=== PATIENT | female | born 1960 | race Caucasian/White ===

== ENCOUNTER 2016-09-05 16:04 | Inpatient (IN) ==
[2016-09-05 16:43] LABS: Bilirubin,Urine Small (Negative); Blood,Urine Negative (Negative); Clarity,Urine Cloudy (Clear); Color,Urine Yellow (Yellow); Glucose,Urine (UA) Normal (Normal); Ketones,Urine Trace mg/dL (Negative); Leukocyte Esterase,Urine Small (Negative); Nitrite,Urine Negative (Negative); Protein,Urine 30 mg/dL (Neg-Trace); Specific Gravity,Urine > 1.030 (1.010-1.025); Urobilinogen,Urine Normal (Normal)
[2016-09-05 16:45] LABS: Bacteria,Urine None Seen per hpf (None-Few); Hyaline Casts,Urine Few per lpf (None-Few); Squamous Epithelial Cell,Urine Many per lpf (None-Few)
[2016-09-05 16:46] LABS: Basophils % 0.3 %; Eosinophils # 0.2 K/mcL (0.0-0.6); Eosinophils % 2.8 %; Hematocrit 42.2 % (35.3-44.9); Hemoglobin 13.6 g/dL (11.5-15.4); Immature Granulocytes % 1.1 % (0-4); Lymphocytes # 2.7 K/mcL (0.6-4.6); Lymphocytes % 36.2 %; Mean Corpuscular HGB Conc 32.2 g/dL (31.6-35.5); Mean Corpuscular Hemoglobin 28.7 pg (28.0-33.3); Monocytes % 13.3 %; Neutrophils # 3.5 K/mcL (1.6-8.9); Platelet Count 332 K/mcL (140-400); Red Blood Count 4.74 M/mcL (3.82-4.97); Red Cell Distribution Width 13.3 % (11.5-14.5); Segmented Neutrophils % 46.3 %
[2016-09-05 16:55] LABS: Amphetamine Screen,Urine Negative ng/mL (Cutoff=1000); Barbiturate Screen,Urine Negative ng/mL (Cutoff=200); Benzodiazepines Screen,Urine Negative ng/mL (Cutoff=200); Cannabinoid Screen,Urine Negative ng/mL (Cutoff = 50); Cocaine Screen,Urine Negative ng/mL (Cutoff= 300); Opiate Screen,Urine Negative ng/mL (Cutoff=300); Phencyclidine Screen,Urine Negative ng/mL (Cutoff=25)
[2016-09-05 16:57] LABS: Calcium Oxalate Crystals,Urine Present
[2016-09-05 16:58] LABS: Mucus,Urine Moderate (Few)
[2016-09-05 17:01] LABS: Acetaminophen < 1.0 mcg/mL (10-30); Alanine Aminotransferase 36 Units/L (0-55); Albumin 3.8 g/dL (3.5-5.0); Albumin/Globulin Ratio 1.2 (1.1-2.2); Alkaline Phosphatase 55 Units/L (38-126); Aspartate Amino Transferase 37 Units/L (5-34); BUN/Creatinine Ratio 24 (6-26); Bilirubin,Total 0.4 mg/dL (0.2-1.2); Blood Urea Nitrogen 19 mg/dL (7-20); Calcium 9.5 mg/dL (8.6-10.8); Carbon Dioxide 25 mEq/L (19-29); Chloride 107 mEq/L (98-109); Ethanol < 10 mg/dL (0-10); Globulin 3.3 g/dL (2.4-3.5); Glucose 100 mg/dL (70-99); Osmolality,Calculated 296 (280-300); Potassium 3.3 mEq/L (3.5-4.5); Salicylate < 5.0 mg/dL (15-30); Sodium 142 mEq/L (136-145); Total Protein 7.1 g/dL (6.0-8.3); eGFR For African Americans > 60 (> 60); eGFR For Non-African Americans > 60 (> 60)
--- NOTE | 2016-09-05 17:07 | Emergency Department Note ---
Disposition Clinical Impression: Manic behavior Disposition: Admitted As Inpatient Condition: Good Referrals: NO,PCP [Primary Care Provider] - Forms: ED Satisfaction Letter Psych HPI - General Chief Complaint: ED Medical Clearance Stated Complaint: medical clearance Time Seen by Provider: 09/05/16 16:25 Source: patient Nursing Notes Reviewed: Yes Vital Signs Reviewed: Yes - History of Present Illness HPI Narrative: Patient has been sent to this emergency department for medical clearance. Patient as having a manic episode. Patient stopped taking her medications a few weeks ago and has not been a being or taking good care of herself. Patient has had problems outside of the home services. Patient has been admitted to the [facility] services but she will need to be cleared medically before being further evaluated. - Related Data Home Medications Medication Instructions Recorded Confirmed Ranitidine HCl [Zantac] 300 mg PO HS 02/11/16 07/28/16 Aspirin 325 mg PO DAILY 07/28/16 07/28/16 Sertraline [Zoloft] 25 mg PO DAILY 07/28/16 07/28/16 Simethicone [Gas-X] 80 mg PO TID PRN 07/28/16 07/28/16 Vitamin B Complex 1 each PO DAILY 07/28/16 07/28/16 Previous Rx's Medication Instructions Recorded Azithromycin [Azithromycin 6-Tab 250 mg PO DAILY #6 tab 07/28/16 Pack] Benzonatate [Tessalon] 200 mg PO TID PRN #30 capsule 07/28/16 Allergies Allergy/AdvReac Type Severity Reaction Status Date / Time Penicillins Allergy Rash Verified 06/18/16 15:55 sulfamethoxazole Allergy See Verified 06/18/16 15:55 [From Bactrim] Comments trimethoprim [From Bactrim] Allergy See Verified 06/18/16 15:55 Comments All systems ED: reviewed and negative except as stated. Past Medical History - Past Medical History Source: patient Medical history: Reports: hyperlipidemia, hypertension, other Surgical history: Reports: other Psychiatric history: Reports: previous psychiatric hospitalization [employer] history: Reports: non-contributory, bilateral tubal ligation - Social History Smoking Status: Never smoker Smokeless Tobacco Status: No Alcohol use: Reports: none Drug use: Reports: none Physical Exam - General Limitations: no limitations General appearance: alert - Head Head exam: atraumatic, normocephalic, normal inspection - Eye Eye exam: Present: normal appearance, PERRL, EOMI - ENT ENT exam: normal exam, normal oropharynx, mucous membranes moist - Neck Neck exam: Present: normal inspection, full ROM, trachea midline - Chest Chest inspection: Present: normal inspection, symmetric chest wall rise - Respiratory Respiratory exam: Present: normal lung sounds bilaterally - Cardiovascular Cardiovascular exam: Present: regular rate, normal rhythm, normal heart sounds - Abdominal Exam Abdominal exam: Present: soft, Non-Tender. Absent: tenderness, distention, guarding, rebound, rigidity - Extremities Exam Extremities exam: Present: normal inspection, full ROM. Absent: tenderness, pedal edema - Back Exam Back exam: Present: normal inspection, full ROM. Absent: tenderness - Neurological Exam Neurological exam: Present: alert, oriented X3 - Psychiatric Psychiatric exam: Present: normal affect, normal mood - Skin Skin exam: Present: warm, dry, intact, normal color Course Vital Signs Temperature 97.8 F 09/05/16 16:09 Pulse Rate 95 09/05/16 16:09 Respiratory Rate 18 09/05/16 16:09 Blood Pressure 148/82 09/05/16 16:09 O2 Sat by Pulse Oximetry 96 09/05/16 16:09 Temperature 97.8 F 09/05/16 16:09 Pulse Rate 95 09/05/16 16:09 Respiratory Rate 18 09/05/16 16:09 Blood Pressure 148/82 09/05/16 16:09 O2 Sat by Pulse Oximetry 96 09/05/16 16:09 Psych - Differential Diagnosis Likely: acute psychosis, suicidal ideation, bipolar disorder, depression, drug- induced psychotic disorder, acute anxiety state, panic disorder - Lab Data Result diagrams: 09/05/16 16:34 09/05/16 16:34 Lab Results 09/05/16 09/05/16 09/05/16 Range/Units 16:32 16:32 16:34 WBC 7.5 (4.3-11.1) K/mcL RBC 4.74 (3.82-4.97) M/mcL Hgb 13.6 (11.5-15.4) g/dL Hct 42.2 (35.3-44.9) % MCV 89.0 (83.0-100.0) fL MCH 28.7 (28.0-33.3) pg MCHC 32.2 (31.6-35.5) g/dL RDW 13.3 (11.5-14.5) % Plt Count 332 (140-400) K/mcL MPV 9.0 L (9.4-12.4) fL Immature Gran % 1.1 (0-4) % Seg Neutrophils % 46.3 % Lymphocytes % 36.2 % Monocytes % 13.3 % Eosinophils % 2.8 % Basophils % 0.3 % Neutrophils # 3.5 (1.6-8.9) K/mcL Lymphocytes # 2.7 (0.6-4.6) K/mcL Monocytes # 1.0 (0.0-1.3) K/mcL Eosinophils # 0.2 (0.0-0.6) K/mcL Basophils # 0.0 (0.0-0.2) K/mcL Sodium (136-145) mEq/L Potassium (3.5-4.5) mEq/L Chloride (98-109) mEq/L Carbon Dioxide (19-29) mEq/L BUN (7-20) mg/dL Creatinine (0.57-1.11) mg/dL Est GFR ( Amer) (> 60) Est GFR (Non-Af Amer) (> 60) BUN/Creatinine Ratio (6-26) Glucose (70-99) mg/dL Calculated Osmolality (280-300) Calcium (8.6-10.8) mg/dL Total Bilirubin (0.2-1.2) mg/dL AST (5-34) Units/L ALT (0-55) Units/L Alkaline Phosphatase (38-126) Units/L Serum Total Protein (6.0-8.3) g/dL Albumin (3.5-5.0) g/dL Globulin (2.4-3.5) g/dL Albumin/Globulin Ratio (1.1-2.2) Urine Color Yellow (Yellow) Urine Clarity Cloudy A (Clear) Urine pH 6.0 (5.0-8.0) pH Units Ur Specific [place] > 1.030 H (1.010-1.025) Urine Protein 30 H (Neg-Trace) mg/dL Urine Glucose (UA) Normal (Normal) mg/dL Urine Ketones Trace H (Negative) mg/dL Urine Blood Negative (Negative) Urine Nitrite Negative (Negative) Urine Bilirubin Small H (Negative) Urine Urobilinogen Normal (Normal) mg/dL Ur Leukocyte Esterase Small H (Negative) Urine Microscopic RBC 3-5 H (0-3) per hpf Urine Microscopic WBC 5-15 H (0-3) per hpf Ur Squamous Epith Cells Many H (None-Few) per lpf Calcium Oxalate Crystal Present Urine Bacteria None Seen (None-Few) per hpf Hyaline Casts Few (None-Few) per lpf Urine Mucus Moderate H (Few) Salicylates (15-30) mg/dL Urine Opiates Screen Negative (Wqsqft=770) ng/mL Acetaminophen (10-30) mcg/mL Ur Barbiturates Screen Negative (Zqfkvp=004) ng/mL Ur Phencyclidine Scrn Negative (Cutoff=25) ng/mL Ur Amphetamines Screen Negative (Lylsel=6703) ng/mL U Benzodiazepines Scrn Negative (Clldjd=646) ng/mL Urine Cocaine Screen Negative (Cutoff= 300) ng/mL U Marijuana (THC) Screen Negative (Cutoff = 50) ng/mL Ethyl Alcohol (0-10) mg/dL 09/05/16 Range/Units 16:34 WBC (4.3-11.1) K/mcL RBC (3.82-4.97) M/mcL Hgb (11.5-15.4) g/dL Hct (35.3-44.9) % MCV (83.0-100.0) fL MCH (28.0-33.3) pg MCHC (31.6-35.5) g/dL RDW (11.5-14.5) % Plt Count (140-400) K/mcL MPV (9.4-12.4) fL Immature Gran % (0-4) % Seg Neutrophils % % Lymphocytes % % Monocytes % % Eosinophils % % Basophils % % Neutrophils # (1.6-8.9) K/mcL Lymphocytes # (0.6-4.6) K/mcL Monocytes # (0.0-1.3) K/mcL Eosinophils # (0.0-0.6) K/mcL Basophils # (0.0-0.2) K/mcL Sodium 142 (136-145) mEq/L Potassium 3.3 L (3.5-4.5) mEq/L Chloride 107 (98-109) mEq/L Carbon Dioxide 25 (19-29) mEq/L BUN 19 (7-20) mg/dL Creatinine 0.78 (0.57-1.11) mg/dL Est GFR ( Amer) > 60 (> 60) Est GFR (Non-Af Amer) > 60 (> 60) BUN/Creatinine Ratio 24 (6-26) Glucose 100 H (70-99) mg/dL Calculated Osmolality 296 (280-300) Calcium 9.5 (8.6-10.8) mg/dL Total Bilirubin 0.4 (0.2-1.2) mg/dL AST 37 H (5-34) Units/L ALT 36 (0-55) Units/L Alkaline Phosphatase 55 (38-126) Units/L Serum Total Protein 7.1 (6.0-8.3) g/dL Albumin 3.8 (3.5-5.0) g/dL Globulin 3.3 (2.4-3.5) g/dL Albumin/Globulin Ratio 1.2 (1.1-2.2) Urine Color (Yellow) Urine Clarity (Clear) Urine pH (5.0-8.0) pH Units Ur Specific [place] (1.010-1.025) Urine Protein (Neg-Trace) mg/dL Urine Glucose (UA) (Normal) mg/dL Urine Ketones (Negative) mg/dL Urine Blood (Negative) Urine Nitrite (Negative) Urine Bilirubin (Negative) Urine Urobilinogen (Normal) mg/dL Ur Leukocyte Esterase (Negative) Urine Microscopic RBC (0-3) per hpf Urine Microscopic WBC (0-3) per hpf Ur Squamous Epith Cells (None-Few) per lpf Calcium Oxalate Crystal Urine Bacteria (None-Few) per hpf Hyaline Casts (None-Few) per lpf Urine Mucus (Few) Salicylates < 5.0 L (15-30) mg/dL Urine Opiates Screen (Jwscgo=591) ng/mL Acetaminophen < 1.0 L (10-30) mcg/mL Ur Barbiturates Screen (Jihyof=812) ng/mL Ur Phencyclidine Scrn (Cutoff=25) ng/mL Ur Amphetamines Screen (Knypud=0489) ng/mL U Benzodiazepines Scrn (Yfgwyi=178) ng/mL Urine Cocaine Screen (Cutoff= 300) ng/mL U Marijuana (THC) Screen (Cutoff = 50) ng/mL Ethyl Alcohol < 10 (0-10) mg/dL Psychiatric Medical Clearance - Medical Clearance Checklist Medical History: No Social History Section defined Current Vitals: Last Vital Signs Temp 97.8 F 09/05/16 16:09 Pulse 95 09/05/16 16:09 Resp 18 09/05/16 16:09 BP 148/82 09/05/16 16:09 Pulse Ox 96 09/05/16 16:09 Psychiatric Lab Panel: Drug Levels and Toxicity 09/05/16 09/05/16 16:32 16:34 Urine Opiates Screen Negative Acetaminophen < 1.0 L Ur Barbiturates Screen Negative Ur Phencyclidine Scrn Negative Ur Amphetamines Screen Negative U Benzodiazepines Scrn Negative Urine Cocaine Screen Negative U Marijuana (THC) Screen Negative Ethyl Alcohol < 10 Abnormal Labs: Abnormal lab results MPV 9.0 fL (9.4-12.4) L 09/05/16 16:34 Potassium 3.3 mEq/L (3.5-4.5) L 09/05/16 16:34 Glucose 100 mg/dL (70-99) H 09/05/16 16:34 AST 37 Units/L (5-34) H 09/05/16 16:34 Urine Clarity Cloudy (Clear) A 09/05/16 16:32 Ur Specific [place] > 1.030 (1.010-1.025) H 09/05/16 16:32 Urine Protein 30 mg/dL (Neg-Trace) H 09/05/16 16:32 Urine Ketones Trace mg/dL (Negative) H 09/05/16 16:32 Urine Bilirubin Small (Negative) H 09/05/16 16:32 Ur Leukocyte Esterase Small (Negative) H 09/05/16 16:32 Urine Microscopic RBC 3-5 per hpf (0-3) H 09/05/16 16:32 Urine Microscopic WBC 5-15 per hpf (0-3) H 09/05/16 16:32 Ur Squamous Epith Cells Many per lpf (None-Few) H 09/05/16 16:32 Urine Mucus Moderate (Few) H 09/05/16 16:32 Salicylates < 5.0 mg/dL (15-30) L 09/05/16 16:34 Acetaminophen < 1.0 mcg/mL (10-30) L 09/05/16 16:34 Statement of Medical Clearance: I have evaluated the patient, reviewed diagnostic information, and certify that the patient's medical condition is sufficiently stable that transfer to the psychiatric unit does not pose a significant risk of deterioration.
[2016-09-05] MEDS ORDERED: Ibuprofen 400 MG TABLET PO PRN (18:25)
[2016-09-05] MEDS ORDERED: Haloperidol Lactate 5 MG/ML VIAL IM PRN (18:25)
[2016-09-05] MEDS ORDERED: MOM Conc 10 ML UD.LIQ PO PRN (18:25)
[2016-09-05] MEDS ORDERED: *HR* LORazepam 2 MG/ML VIAL IM PRN (18:25)
[2016-09-05] MEDS ORDERED: *HR* LORazepam 1 MG TABLET PO PRN (18:25)
[2016-09-05] MEDS ORDERED: Mag Hydrox/Al Hydrox/Simeth 30 ML UDC PO PRN (18:25)
[2016-09-05] MEDS ORDERED: Famotidine 20 MG TABLET PO PRN (18:36)
[2016-09-05] MEDS: traZODone 50 MG TABLET PO SCH (20:17)
[2016-09-05] MEDS: traZODone 50 MG TABLET PO PRN (23:57)
--- NOTE | 2016-09-06 09:55 | Psychiatry History & Physical ---
Date of Encounter: 09/06/16 Time of Encounter: 09:00 History of Present Illness Patient Stated Chief Complaint: Manic episode Medicare Admission Attestation: For traditional Medicare patients the provided hospital inpatient services are reasonable and necessary and in the case of services not specified as inpatient -only under 42 CFR 419.22 (n), that they are appropriately provided as inpatient services in accordance 42 CFR 412.3. For Critical Access Hospital the patient may reasonably be expected to be discharged or transferred to a hospital within 96 hours after admission to the Critical Access Hospital. Admitted From: Emergency Dept History of Present Illness: Ms. Rasheed is a 56 year old female admitted from the emergency room for evaluation of a manic episode with psychosis. Patient was reported to be wandering in the streets and was brought in by the police, she was noncompliant with her medication. Patient has a history of depression and bipolar and has been hospitalized in the past and did not comply with medication or follow-up. She reports poor sleep, mood swings but denies any hallucinations or suicidal ideation. Past Med Surg Social Fam HX - Past Medical History Medical history: hyperlipidemia, hypertension, other - Past Psychiatric History Psychiatric history: Reports: bipolar, depression, schizophrenia, previous psychiatric hospitalization Past psychiatric history details: Most recent hospitalization February 2016 discharged on Zoloft, BuSpar and trazodone. Family psychiatric history: Unknown Family History of Suicide: Unknown - Past Surgical History Surgical History: non-contributory, other - Social History Smoking Status: Never smoker Smokeless Tobacco Status: No Alcohol use: none Drug use: none - Family History Mother Family Member Ethnicity: Non- Living Status: Hx Family Cardiac Disorders: Yes Father Family Member Ethnicity: Non- Living Status: Hx Family Cardiac Disorders: Yes (stents in 2002) Hx Family Endocrine Disorder: Yes ("Diabetic, overweight") Medications & Allergies Ranitidine HCl [Zantac] 300 mg PO BID PRN 02/11/16 [History] Sertraline [Zoloft] 50 mg PO DAILY 07/28/16 [History] Aspirin 325 mg PO DAILY 09/05/16 [History] Cyanocobalamin (B-12) [Vitamin B12] 1,000 mg PO DAILY 09/05/16 [History] Gabapentin [Neurontin] 300 mg PO TID 09/05/16 [History] Insulin ASPART [NovoLOG] 09/05/16 [History] Insulin Glargine [Lantus] 09/05/16 [History] Levothyroxine Sodium 75 mcg PO 0630 09/05/16 [History] [place] Carbonate 300 mg PO DAILY 09/05/16 [History] [place] Carbonate ER [Eskalith] 450 mg PO HS 09/05/16 [History] Losartan Potassium [Cozaar] 50 mg PO DAILY 09/05/16 [History] Metformin [Glucophage] 500 mg PO BIDWM 09/05/16 [History] Naproxen [Naprosyn] 250 mg PO BID PRN 09/05/16 [History] Omeprazole [PriLOSEC] 20 mg PO DAILY 09/05/16 [History] Potassium Chloride [K-Tab ER] 20 meq PO BID 09/05/16 [History] SUMAtriptan [Imitrex] 50 mg PO Q2H PRN 09/05/16 [History] Simvastatin [Zocor] 40 mg PO DAILY 09/05/16 [History] Solifenacin Succinate [Vesicare] 5 mg PO DAILY 09/05/16 [History] Topiramate [Topiramate] 50 mg PO BID 09/05/16 [History] TraZODone 50 - 100 mg PO HS 09/05/16 [History] Allergies Penicillins Allergy (Verified 09/05/16 18:47) Rash sulfamethoxazole [From Bactrim] Allergy (Verified 09/05/16 18:47) See Comments trimethoprim [From Bactrim] Allergy (Verified 09/05/16 18:47) See Comments Review of Systems Psychiatric: Reports: mood swings, other (Manic) Mental Status Exam Patient orientation: Yes Person, Yes Time, Yes Place Level of alertness: Alert Patient appearance: Appropriate, Well Groomed Behavior: calm, cooperative Psychomotor activity: Normal Eye contact: Maintains Eye Contact Mood description: Euphoric, Labile Affect description: congruent with mood, labile, euphoric Speech pattern: Normal rate, Normal rhythm, Normal tone, Pressured Speech volume: Normal Thought process: Tangential, Flight of Ideas Thought content: No Suicidal ideation, No Homicidal ideation, No Overt delusions Perceptual disturbances: No Auditory hallucinations, No Visual hallucinations Attention span: Capable of Focused Attention Memory description: Grossly Intact Patient reliability: Questionable Historian Intelligence estimate: Average Judgment: Limited Insight: Partial Results - Vital Signs Vital signs: Temp Pulse Resp BP Pulse Ox 97 F L 75 16 134/82 96 09/06/16 08:29 09/06/16 08:29 09/06/16 08:29 09/06/16 08:29 09/05/16 16:09 - Labs Labs: Laboratory Last Values WBC 7.5 K/mcL (4.3-11.1) 09/05/16 16:34 RBC 4.74 M/mcL (3.82-4.97) 09/05/16 16:34 Hgb 13.6 g/dL (11.5-15.4) 09/05/16 16:34 Hct 42.2 % (35.3-44.9) 09/05/16 16:34 MCV 89.0 fL (83.0-100.0) 09/05/16 16:34 MCH 28.7 pg (28.0-33.3) 09/05/16 16:34 MCHC 32.2 g/dL (31.6-35.5) 09/05/16 16:34 RDW 13.3 % (11.5-14.5) 09/05/16 16:34 Plt Count 332 K/mcL (140-400) 09/05/16 16:34 MPV 9.0 fL (9.4-12.4) L 09/05/16 16:34 Immature Gran % 1.1 % (0-4) 09/05/16 16:34 Seg Neutrophils % 46.3 % 09/05/16 16:34 Lymphocytes % 36.2 % 09/05/16 16:34 Monocytes % 13.3 % 09/05/16 16:34 Eosinophils % 2.8 % 09/05/16 16:34 Basophils % 0.3 % 09/05/16 16:34 Neutrophils # 3.5 K/mcL (1.6-8.9) 09/05/16 16:34 Lymphocytes # 2.7 K/mcL (0.6-4.6) 09/05/16 16:34 Monocytes # 1.0 K/mcL (0.0-1.3) 09/05/16 16:34 Eosinophils # 0.2 K/mcL (0.0-0.6) 09/05/16 16:34 Basophils # 0.0 K/mcL (0.0-0.2) 09/05/16 16:34 Sodium 142 mEq/L (136-145) 09/05/16 16:34 Potassium 3.3 mEq/L (3.5-4.5) L 09/05/16 16:34 Chloride 107 mEq/L (98-109) 09/05/16 16:34 Carbon Dioxide 25 mEq/L (19-29) 09/05/16 16:34 BUN 19 mg/dL (7-20) 09/05/16 16:34 Creatinine 0.78 mg/dL (0.57-1.11) 09/05/16 16:34 Est GFR ( Amer) > 60 (> 60) 09/05/16 16:34 Est GFR (Non-Af Amer) > 60 (> 60) 09/05/16 16:34 BUN/Creatinine Ratio 24 (6-26) 09/05/16 16:34 Glucose 100 mg/dL (70-99) H 09/05/16 16:34 Calculated Osmolality 296 (280-300) 09/05/16 16:34 Calcium 9.5 mg/dL (8.6-10.8) 09/05/16 16:34 Total Bilirubin 0.4 mg/dL (0.2-1.2) 09/05/16 16:34 AST 37 Units/L (5-34) H 09/05/16 16:34 ALT 36 Units/L (0-55) 09/05/16 16:34 Alkaline Phosphatase 55 Units/L (38-126) 09/05/16 16:34 Serum Total Protein 7.1 g/dL (6.0-8.3) 09/05/16 16:34 Albumin 3.8 g/dL (3.5-5.0) 09/05/16 16:34 Globulin 3.3 g/dL (2.4-3.5) 09/05/16 16:34 Albumin/Globulin Ratio 1.2 (1.1-2.2) 09/05/16 16:34 Urine Color Yellow (Yellow) 09/05/16 16:32 Urine Clarity Cloudy (Clear) A 09/05/16 16:32 Urine pH 6.0 pH Units (5.0-8.0) 09/05/16 16:32 Ur Specific [place] > 1.030 (1.010-1.025) H 09/05/16 16:32 Urine Protein 30 mg/dL (Neg-Trace) H 09/05/16 16:32 Urine Glucose (UA) Normal mg/dL (Normal) 09/05/16 16:32 Urine Ketones Trace mg/dL (Negative) H 09/05/16 16:32 Urine Blood Negative (Negative) 09/05/16 16:32 Urine Nitrite Negative (Negative) 09/05/16 16:32 Urine Bilirubin Small (Negative) H 09/05/16 16:32 Urine Urobilinogen Normal mg/dL (Normal) 09/05/16 16:32 Ur Leukocyte Esterase Small (Negative) H 09/05/16 16:32 Urine Microscopic RBC 3-5 per hpf (0-3) H 09/05/16 16:32 Urine Microscopic WBC 5-15 per hpf (0-3) H 09/05/16 16:32 Ur Squamous Epith Cells Many per lpf (None-Few) H 09/05/16 16:32 Calcium Oxalate Crystal Present 09/05/16 16:32 Urine Bacteria None Seen per hpf (None-Few) 09/05/16 16:32 Hyaline Casts Few per lpf (None-Few) 09/05/16 16:32 Urine Mucus Moderate (Few) H 09/05/16 16:32 Salicylates < 5.0 mg/dL (15-30) L 09/05/16 16:34 Urine Opiates Screen Negative ng/mL (Qurtkx=763) 09/05/16 16:32 Acetaminophen < 1.0 mcg/mL (10-30) L 09/05/16 16:34 Ur Barbiturates Screen Negative ng/mL (Dlrujc=303) 09/05/16 16:32 Ur Phencyclidine Scrn Negative ng/mL (Cutoff=25) 09/05/16 16:32 Ur Amphetamines Screen Negative ng/mL (Rndusn=7890) 09/05/16 16:32 U Benzodiazepines Scrn Negative ng/mL (Cdtijw=956) 09/05/16 16:32 Urine Cocaine Screen Negative ng/mL (Cutoff= 300) 09/05/16 16:32 U Marijuana (THC) Screen Negative ng/mL (Cutoff = 50) 09/05/16 16:32 Ethyl Alcohol < 10 mg/dL (0-10) 05/05/17 16:34 Assessment and Plan (1) Bipolar disorder, manic Current visit: Yes Status: Acute Plan: Admit inpatient for safety and stabilization, Close observation, Suicide Precautions per unit protocol, Encourage participation in unit milieu, Group Therapy, Monitor sleep, Monitor appetite Additional Plan: We will start patient on Abilify 5 mg daily benefits and side effect are discussed and will monitor Risks, benefits, side effects, alternatives discussed w/pt: Yes Patient agreeable to treatment: Yes Estimated Length of Stay (Days): 5
[2016-09-06] MEDS: traZODone 50 MG TABLET PO PRN (20:37)
[2016-09-06] MEDS: traZODone 50 MG TABLET PO SCH (20:37)
[2016-09-07] MEDS: ARIPiprazole 5 MG TABLET PO SCH ×2 (10:25→20:55)
--- NOTE | 2016-09-07 14:29 | Psychiatry Progress Note ---
Date of Encounter: 09/07/16 Time of Encounter: 14:00 Subjective Interval history: Patient is seen for follow-up. Staff report she is pleasant and cooperative and denying any hallucination or suicidal ideation. She is compliant with medication and interacts appropriately with other patients. She is tolerating the medication was out any side effects. Patient had long history of noncompliance and her discharge plans have not been completed yet. Review of Systems Psychiatric: Reports: mood swings, other (Manic) Objective: Exam Patient orientation: Yes Person, Yes Time, Yes Place Level of alertness: Alert Patient appearance: Appropriate, Well Groomed Behavior: calm, cooperative Psychomotor activity: Slowed Eye contact: Maintains Eye Contact Mood description: Euthymic/stable Affect description: congruent with mood, full range Speech pattern: Normal rate, Normal rhythm, Normal tone, Excessive, Pressured Speech volume: Normal Thought process: Tangential, Flight of Ideas Thought content: No Suicidal ideation, No Homicidal ideation, No Overt delusions Perceptual disturbances: No Auditory hallucinations, No Visual hallucinations Judgment: Fair Insight: Partial Results - Vital Signs Vital Signs: Temp Pulse Resp BP Pulse Ox 97.6 F 79 16 154/94 96 09/07/16 08:25 09/07/16 08:25 09/07/16 08:25 09/07/16 08:25 09/05/16 16:09 Assessment and Plan (1) Bipolar disorder, manic Current visit: Yes Status: Acute Plan: Continue hospitalization, Close observation, Suicide Precautions per unit protocol, Encourage participation in unit milieu, Group Therapy, Monitor sleep, Monitor appetite Risks, benefits, side effects, alternatives discussed w/pt: Yes Patient agreeable to treatment: Yes Consult Discharge Plan - Plan Referrals: NO,PCP [Primary Care Provider] -
[2016-09-07] MEDS: traZODone 50 MG TABLET PO PRN (20:56)
[2016-09-07] MEDS: hydrOXYzine pamoate 25 MG CAPSULE PO PRN (20:56)
[2016-09-07] MEDS: traZODone 50 MG TABLET PO SCH (20:56)
[2016-09-08] MEDS: hydrOXYzine pamoate 25 MG CAPSULE PO PRN (20:36)
[2016-09-08] MEDS: traZODone 50 MG TABLET PO SCH (20:36)
[2016-09-08] MEDS: traZODone 50 MG TABLET PO PRN (20:36)
[2016-09-08] MEDS: ARIPiprazole 5 MG TABLET PO SCH (20:36)
--- NOTE | 2016-09-09 18:29 | Psychiatry Progress Note ---
Date of Encounter: 09/08/16 Time of Encounter: 15:15 Subjective Interval history: According to staff Gretchen has previously been admitted for severe depression. Gretchen acknowledged the same when this technical publications writer spoke to her. Staff have never known her to be manic but Gretchen presented this time with manic behaviors. She had walked from [place] to [facility] (a distance of 12 miles) and she was picked up in [place] and and brought to the ER. Her feet have uncomfortable blisters on them. She was started on Abilify over the weekend and it seems like this medication is helping. When she was first admitted she was sexually preoccupied and not sleeping. She has started to get some sleep with the assistance of Vistaril and Trazodone but she is still energized. Prior meds include Zoloft and Trazodone and these alone may have precipitated a manic presentation. According to Gretchen she feels great and she seems to like the tyler. She is not cognitively savvy and staff will be doing some education with her. Review of Systems Constitutional: Denies: fever, chills, weakness, weight change Eyes: Denies: eye pain, vision change Ears, Nose, Throat: Denies: ear pain, throat pain, dental pain, hearing loss, congestion Cardiovascular: Denies: chest pain, palpitations, dyspnea on exertion Respiratory: Denies: cough, dyspnea, wheezes Gastrointestinal: Denies: abdominal pain, nausea, vomiting, diarrhea, constipation Musculoskeletal: Reports: joint pain Psychiatric: Reports: mood swings, other (Manic) Objective: Exam Patient orientation: Yes Person, Yes Time, Yes Place Level of alertness: Alert Patient appearance: Appropriate Behavior: talkative Psychomotor activity: Normal Eye contact: Maintains Eye Contact Mood description: Elevated Affect description: congruent with mood Speech pattern: Normal rate, Normal rhythm, Normal tone Speech volume: Normal Thought process: Tangential Thought content: No Suicidal ideation, No Homicidal ideation, No Overt delusions Perceptual disturbances: No Auditory hallucinations, No Visual hallucinations Judgment: Limited Insight: Minimal Results - Vital Signs Vital Signs: Temp Pulse Resp BP Pulse Ox 98.2 F 80 16 140/89 96 09/09/16 09:00 09/09/16 09:00 09/09/16 09:00 09/09/16 09:00 09/05/16 16:09 Assessment and Plan (1) Bipolar disorder, manic Current visit: Yes Status: Acute Plan: Continue hospitalization, Close observation, Encourage participation in unit milieu, Group Therapy, Monitor sleep, Monitor appetite Risks, benefits, side effects, alternatives discussed w/pt: Yes Patient agreeable to treatment : Yes Consult Discharge Plan - Plan Referrals: [facility] [Outside] (You are going into respite at [facility] on discharge from the hospital. While there, you will be seen daily by the clinic counselors and case hardener.)
--- NOTE | 2016-09-09 18:35 | Psychiatry Progress Note ---
Date of Encounter: 09/09/16 Time of Encounter: 18:32 Subjective Interval history: Looks a little better today. Reports she feels more "blah" but this is likely due to tyler subsiding. Last night she was still grandiose and talking about buying properties and redoing them. Wants to go home. Yesterday she was agreeable to going to a respite bed but today she is more adamant about returning home. Does not have many supports and would benefit from respite care as they can fit her in tomorrow. Review of Systems Constitutional: Denies: fever, chills, weakness, weight change Eyes: Denies: eye pain, vision change Ears, Nose, Throat: Denies: ear pain, throat pain, dental pain, hearing loss, congestion Cardiovascular: Denies: chest pain, palpitations, dyspnea on exertion Respiratory: Denies: cough, dyspnea, wheezes Gastrointestinal: Denies: abdominal pain, nausea, vomiting, diarrhea, constipation Musculoskeletal: Denies: joint swelling, joint pain Neurological: Denies: headache, weakness, numbness, memory loss Psychiatric: Reports: mood swings, other (Manic) Objective: Exam Patient orientation: Yes Person, Yes Time, Yes Place Level of alertness: Alert Patient appearance: Appropriate Behavior: calm Psychomotor activity: Normal Eye contact: Maintains Eye Contact Mood description: Irritable Affect description: congruent with mood, full range Speech pattern: Normal rate, Normal rhythm, Normal tone Speech volume: Normal Thought process: Tangential Thought content: No Suicidal ideation, No Homicidal ideation, No Overt delusions Perceptual disturbances: No Auditory hallucinations, No Visual hallucinations Judgment: Limited Insight: Minimal Results - Vital Signs Vital Signs: Temp Pulse Resp BP Pulse Ox 98.2 F 80 16 140/89 96 09/09/16 09:00 09/09/16 09:00 09/09/16 09:00 09/09/16 09:00 09/05/16 16:09 Assessment and Plan (1) Bipolar disorder, manic Current visit: Yes Status: Acute Plan: Continue hospitalization, Close observation, Encourage participation in unit milieu, Group Therapy, Monitor sleep, Monitor appetite Risks, benefits, side effects, alternatives discussed w/pt: Yes Patient agreeable to treatment : Yes Consult Discharge Plan - Plan Referrals: [facility] [Outside] (You are going into respite at [facility] on discharge from the hospital. While there, you will be seen daily by the clinic counselors and case filler.)
[2016-09-09] MEDS: ARIPiprazole 5 MG TABLET PO SCH (21:02)
[2016-09-09] MEDS: hydrOXYzine pamoate 25 MG CAPSULE PO PRN (21:02)
[2016-09-09] MEDS: traZODone 50 MG TABLET PO SCH (21:02)
[2016-09-10 09:21] VITALS: BP 142/91
--- NOTE | 2016-09-10 12:27 | Discharge Summary ---
Date of Encounter: 09/10/16 Time of Encounter: 12:13 Diagnosis - Discharge Diagnosis (1) Bipolar disorder, manic Status: Acute Medications - Discharge Medications Prescriptions: Aripiprazole [Abilify] 5 mg PO HS #30 tablet Sertraline [Zoloft] 50 mg PO DAILY #60 tablet TraZODone 100 mg PO HS #60 tablet Ranitidine HCl [Zantac] 300 mg PO BID PRN 02/11/16 [History] Aspirin 325 mg PO DAILY 09/05/16 [History] Cyanocobalamin (B-12) [Vitamin B12] 1,000 mg PO DAILY 09/05/16 [History] Gabapentin [Neurontin] 300 mg PO TID 09/05/16 [History] Insulin ASPART [NovoLOG] 09/05/16 [History] Insulin Glargine [Lantus] 09/05/16 [History] Levothyroxine Sodium 75 mcg PO 0630 09/05/16 [History] [place] Carbonate 300 mg PO DAILY 09/05/16 [History] [place] Carbonate ER [Eskalith] 450 mg PO HS 09/05/16 [History] Losartan Potassium [Cozaar] 50 mg PO DAILY 09/05/16 [History] Metformin [Glucophage] 500 mg PO BIDWM 09/05/16 [History] Omeprazole [PriLOSEC] 20 mg PO DAILY 09/05/16 [History] Potassium Chloride [K-Tab ER] 20 meq PO BID 09/05/16 [History] SUMAtriptan [Imitrex] 50 mg PO Q2H PRN 09/05/16 [History] Simvastatin [Zocor] 40 mg PO DAILY 09/05/16 [History] Solifenacin Succinate [Vesicare] 5 mg PO DAILY 09/05/16 [History] Topiramate 50 mg PO BID 09/05/16 [History] Aripiprazole [Abilify] 5 mg PO HS #30 tablet 09/10/16 [Rx] Sertraline [Zoloft] 50 mg PO DAILY #60 tablet 09/10/16 [Rx] TraZODone 100 mg PO HS #60 tablet 09/10/16 [Rx] Allergies Penicillins Allergy (Verified 09/05/16 18:47) Rash sulfamethoxazole [From Bactrim] Allergy (Verified 05/05/17 18:47) See Comments trimethoprim [From Bactrim] Allergy (Verified 09/05/16 18:47) See Comments Provider Date of admission: 09/05/16 18:15 Primary care physician: PCP NO Discharging clinician: Felicia Mcdowell Assessment and Plan - Patient/Caregiver Discharge Instructions Activity: resume usual activities as tolerated Diet: low fat, low cholesterol - Follow up Plan Follow up with: [facility] [Outside] (You are going into respite at [facility] on discharge from the hospital. While there, you will be seen daily by the clinic counselors and rehabilitation case coordinator. You will also see Jessica Lopez, psychiatric prescriber, on 10/14 at 4:30pm.) Functional capacity at discharge: independent ambulation Overall status at discharge: Stable Disposition: Home, Self-Care Hospital Course Hospital course: Ms. Rasheed is a 56 year old female who was admitted secondary to manic behaviors. She had walked twelve miles from her home and was picked up by police and taken to the ER. She had walked so much that her feet were swollen and blistered. She presented as hyperverbal and sexually preoccupied with grandiose ideas and plans. Staff familiar with her had only known her to be depressed. This was the first time she had presented as manic. She was started on Abilify and she slowly improved over the course of her inpatient stay. She reported feeling "blah" on the medication and seemed to prefer the tyler but staff noticed her becoming more stable on the Abilify. She was initially resistant to going anywhere but home but eventually agreed to be discharged to a respite bed in order to have more stabilization time before returning home. - Time Spent with Patient Total time spent providing and/or coordinating discharge services: Quality - Multiple Antipsychotics Patient discharged on 2 or more antipsychotic medications: No Procedures - Procedures Procedures: Medication Management, Crisis Stabilization, Supportive Therapy, Group Therapy Mental Status Exam - Mental Status Exam Patient orientation: Yes Person, Yes Time, Yes Place Level of alertness: Alert Patient appearance: Appropriate Behavior: calm, cooperative Psychomotor activity: Normal Eye contact: Maintains Eye Contact Mood description: Euthymic/stable Affect description: congruent with mood, full range Speech pattern: Normal rate, Normal rhythm, Normal tone Speech Volume: Normal Thought process: Linear, Goal Oriented Thought Content: No Suicidal ideation, No Homicidal ideation, No Overt delusions Perceptual Disturbances: No Auditory hallucinations, No Visual hallucinations Judgment: Limited Insight: Partial
== END 2016-09-10 13:45 | disposition home or self-care (01) | DRG 753 ==
LOC: EMEROO 16:04 → SUATTDRO 18:15 → 1ANU 18:15
PROVIDERS: ADMIT Psychiatry & Neurology Psychiatry; ATTEND Psychiatry & Neurology Psychiatry

== ENCOUNTER 2019-06-03 13:44 | Observation (INO) ==
[2019-06-03 15:09] LABS: BUN/Creatinine Ratio 29 (6-26); Blood Urea Nitrogen 29 mg/dL (6-20); Calcium 10.2 mg/dL (8.6-10.3); Carbon Dioxide 23 mEq/L (23-29); Chloride 98 mEq/L (98-107); Glucose 136 mg/dL (70-105); Osmolality,Calculated 298 (280-300); Potassium 2.7 mEq/L (3.5-5.1); Sodium 140 mEq/L (136-145); eGFR For African Americans > 60 (> 60); eGFR For Non-African Americans 58 (> 60)
[2019-06-03] MEDS ORDERED: Aspirin 81 MG TAB.CHEW PO STA (15:15)
[2019-06-03] MEDS ORDERED: Potassium Chloride Elixir 20 MEQ/15 ML UDC PO ONE (15:45)
[2019-06-03] MEDS ORDERED: Naloxone 0.4 MG/ML INJ IVP PRN (16:21)
[2019-06-03] MEDS ORDERED: Ondansetron 4 MG/2 ML VIAL IVP PRN (16:21)
[2019-06-03] MEDS ORDERED: Perflutren Lipid Microsphere 1.3 ML in 0.9 % Sodium Chloride 8.7 ML IVP ONE (18:02)
[2019-06-03] MEDS: *HR* Heparin 5,000 UNIT/ML VIAL SQ SCH (20:12)
[2019-06-03] MEDS: Ringers Solution, Lactated 1,000 ML IVC SCH (20:12)
[2019-06-03 20:51] LABS: Troponin I < 0.03 ng/mL (< 0.04)
[2019-06-03 21:45] LABS: Potassium 3.1 mEq/L (3.5-5.1)
[2019-06-04 03:27] LABS: Basophils % 0.5 %; Eosinophils # 0.3 K/mcL (0.0-0.6); Eosinophils % 2.9 %; Hematocrit 48.6 % (35.3-44.9); Immature Granulocytes % 0.6 % (0-4); Lymphocytes # 2.4 K/mcL (0.6-4.6); Lymphocytes % 27.7 %; Mean Corpuscular HGB Conc 31.9 g/dL (31.6-35.5); Mean Corpuscular Hemoglobin 28.4 pg (28.0-33.3); Mean Platelet Volume 10.1 fL (9.4-12.4); Monocytes # 1.3 K/mcL (0.0-1.3); Monocytes % 14.4 %; Neutrophils # 4.8 K/mcL (1.6-8.9); Platelet Count 308 K/mcL (140-400); Red Blood Count 5.46 M/mcL (3.82-4.97); Red Cell Distribution Width 14.1 % (11.5-14.5); Segmented Neutrophils % 53.9 %; White Blood Count 8.8 K/mcL (4.3-11.1)
[2019-06-04 03:31] LABS: Hemoglobin 15.5 g/dL (11.5-15.4)
[2019-06-04 03:53] LABS: BUN/Creatinine Ratio 37 (6-26); Blood Urea Nitrogen 31 mg/dL (6-20); Calcium 9.3 mg/dL (8.6-10.3); Carbon Dioxide 21 mEq/L (23-29); Chloride 102 mEq/L (98-107); Chol/HDL Ratio 5.3 (0-4.9); Cholesterol 153 mg/dL (< 200); Glucose 96 mg/dL (70-105); HDL Cholesterol 29 mg/dL (40-59); LDL Cholesterol,Calculated 100 mg/dL (0-99); Magnesium 1.9 mg/dL (1.6-2.6); Osmolality,Calculated 292 (280-300); Sodium 138 mEq/L (136-145); Triglycerides 121 mg/dL (< 150); eGFR For African Americans > 60 (> 60); eGFR For Non-African Americans > 60 (> 60)
[2019-06-04] MEDS: *HR* Heparin 5,000 UNIT/ML VIAL SQ SCH ×2 (05:06→18:01)
[2019-06-04] MEDS ORDERED: Famotidine 20 MG TABLET PO PRN (07:30)
[2019-06-04] MEDS: Ringers Solution, Lactated 1,000 ML IVC SCH (08:13)
[2019-06-04] MEDS: Aspirin Enteric Coated 81 MG Tablet PO SCH (08:13)
[2019-06-04] MEDS: Potassium Chloride Elixir 20 MEQ/15 ML UDC PO SCH ×2 (08:13→11:33)
[2019-06-04 10:46] LABS: Estimated Average Glucose 151 mg/dl
[2019-06-05 02:08] LABS: Hematocrit 48.5 % (35.3-44.9); Hemoglobin 15.3 g/dL (11.5-15.4); Mean Corpuscular HGB Conc 31.5 g/dL (31.6-35.5); Mean Corpuscular Hemoglobin 28.7 pg (28.0-33.3); Mean Corpuscular Volume 90.8 fL (83.0-100.0); Mean Platelet Volume 10.5 fL (9.4-12.4); Platelet Count 275 K/mcL (140-400); Red Blood Count 5.34 M/mcL (3.82-4.97)
[2019-06-05 02:28] LABS: BUN/Creatinine Ratio 32 (6-26); Blood Urea Nitrogen 24 mg/dL (6-20); Calcium 9.4 mg/dL (8.6-10.3); Carbon Dioxide 23 mEq/L (23-29); Chloride 107 mEq/L (98-107); Glucose 101 mg/dL (70-105); Osmolality,Calculated 296 (280-300); Potassium 3.5 mEq/L (3.5-5.1); Sodium 141 mEq/L (136-145); eGFR For African Americans > 60 (> 60); eGFR For Non-African Americans > 60 (> 60)
[2019-06-05] MEDS: *HR* Heparin 5,000 UNIT/ML VIAL SQ SCH (05:46)
[2019-06-05] MEDS ORDERED: Regadenoson 0.4 MG/5 ML SYRINGE IVP ONE (06:53)
[2019-06-05] MEDS: Aspirin Enteric Coated 81 MG Tablet PO SCH (10:10)
[2019-06-05 10:42] VITALS: BP 137/86
== END 2019-06-05 12:38 | disposition home or self-care (01) ==
LOC: EMEROOARM 13:44 → 3BNU 13:44 → SUATTDRO 16:23 → 3BNU 17:15
PROVIDERS: ADMIT Internal Medicine; ATTEND Internal Medicine

== ENCOUNTER 2020-08-21 04:53 | Inpatient (IN) ==
[2020-08-21 05:45] LABS: Basophils % 0.4 %; Eosinophils # 0.1 K/mcL (0.0-0.6); Eosinophils % 1.2 %; Hematocrit 44.4 % (35.3-44.9); Hemoglobin 14.4 g/dL (11.5-15.4); Immature Granulocytes % 1.4 % (0-4); Lymphocytes % 21.3 %; Mean Corpuscular HGB Conc 32.4 g/dL (31.6-35.5); Mean Corpuscular Hemoglobin 28.8 pg (28.0-33.3); Mean Corpuscular Volume 88.8 fL (83.0-100.0); Mean Platelet Volume 9.2 fL (9.4-12.4); Monocytes # 1.2 K/mcL (0.0-1.3); Neutrophils # 5.8 K/mcL (1.6-8.9); Platelet Count 295 K/mcL (140-400); Red Cell Distribution Width 13.1 % (11.5-14.5); Segmented Neutrophils % 62.7 %; White Blood Count 9.2 K/mcL (4.3-11.1)
[2020-08-21 05:59] LABS: Amphetamine Screen,Urine Negative ng/mL (Cutoff=1000); Barbiturate Screen,Urine Negative ng/mL (Cutoff=200); Benzodiazepines Screen,Urine Negative ng/mL (Cutoff=200); Cannabinoid Screen,Urine Negative ng/mL (Cutoff = 50); Cocaine Screen,Urine Negative ng/mL (Cutoff= 300); Opiate Screen,Urine Negative ng/mL (Cutoff=300); Phencyclidine Screen,Urine Negative ng/mL (Cutoff=25)
[2020-08-21 06:03] LABS: Acetaminophen < 10 mcg/mL (10-20); BUN/Creatinine Ratio 35 (6-26); Blood Urea Nitrogen 26 mg/dL (6-20); Calcium 9.9 mg/dL (8.6-10.3); Carbon Dioxide 25 mEq/L (23-29); Chloride 106 mEq/L (98-107); Ethanol < 10 mg/dL (Less than 10); Glucose 129 mg/dL (70-105); Osmolality,Calculated 302 (280-300); Potassium 3.1 mEq/L (3.5-5.1); Salicylate < 2.5 mg/dL (15.0-30.0); Sodium 143 mEq/L (136-145); eGFR For African Americans > 60 (> 60); eGFR For Non-African Americans > 60 (> 60)
[2020-08-21 06:36] LABS: Bacteria,Urine Few per hpf (None-Few); Bilirubin,Urine Negative (Negative); Blood,Urine Trace (Negative); Calcium Oxalate Crystals,Urine Present; Clarity,Urine Turbid (Clear); Color,Urine Yellow (Yellow); Glucose,Urine (UA) Normal (Normal); Hyaline Casts,Urine Moderate per lpf (None Seen); Ketones,Urine 10 mg/dL (Negative); Leukocyte Esterase,Urine Large (Negative); Mucus,Urine Many per lpf (None-Few); Nitrite,Urine Negative (Negative); Protein,Urine 100 mg/dL (Neg-Trace); RBC,Urine 30-50 per hpf (0-3); Specific Gravity,Urine > 1.030 (1.010-1.025); Squamous Epithelial Cell,Urine Moderate per hpf (None-Few); Urobilinogen,Urine Normal (Normal); WBC,Urine 15-30 per hpf (0-3)
[2020-08-21] MEDS ORDERED: Haloperidol Lactate 5 MG/ML VIAL IM ONE (06:36)
[2020-08-21] MEDS ORDERED: cephALEXin 500 MG CAPSULE PO ONE (17:00)
[2020-08-21] MEDS ORDERED: *HR* LORazepam 2 MG/ML VIAL IM PRN (19:05)
[2020-08-21] MEDS ORDERED: haloperidoL 5 MG TABLET PO PRN (19:05)
[2020-08-21] MEDS ORDERED: Haloperidol Lactate 5 MG/ML VIAL IM PRN (19:05)
[2020-08-21] MEDS ORDERED: *HR* LORazepam 1 MG TABLET PO PRN (19:05)
[2020-08-21] MEDS: QUEtiapine Fumarate 25 MG TABLET PO PRN (22:05)
[2020-08-21] MEDS: hydrOXYzine pamoate 25 MG CAPSULE PO PRN (22:05)
[2020-08-22] MEDS: cephALEXin 500 MG CAPSULE PO SCH ×2 (10:25→21:08)
[2020-08-22] MEDS ORDERED: Mag Hydrox/Al Hydrox/Simeth 30 ML UDC PO PRN (13:22)
[2020-08-22] MEDS ORDERED: MOM Conc 10 ML UD.LIQ PO PRN (13:22)
[2020-08-22] MEDS: Aspirin Enteric Coated 81 MG Tablet PO SCH (14:56)
[2020-08-22] MEDS: Cyanocobalamin (B-12) 1,000 MCG TABLET PO SCH (14:56)
[2020-08-22] MEDS ORDERED: traZODone 50 MG TABLET PO SCH (21:00)
[2020-08-22] MEDS ORDERED: ARIPiprazole 5 MG TABLET PO SCH (21:00)
[2020-08-22] MEDS: Famotidine 20 MG TABLET PO SCH (21:06)
[2020-08-23] MEDS: Cyanocobalamin (B-12) 1,000 MCG TABLET PO SCH (08:55)
[2020-08-23] MEDS: Famotidine 20 MG TABLET PO SCH ×2 (08:56→21:11)
[2020-08-23] MEDS: cephALEXin 500 MG CAPSULE PO SCH ×2 (08:56→21:11)
[2020-08-23] MEDS: Aspirin Enteric Coated 81 MG Tablet PO SCH (08:56)
[2020-08-23 11:07] LABS: Estimated Average Glucose 131 mg/dl; Hemoglobin A1C 6.2 %
[2020-08-23 11:15] LABS: Alanine Aminotransferase 36 Units/L (7-52); Albumin 4.2 g/dL (3.5-5.7); Albumin/Globulin Ratio 1.4 (1.1-2.2); Alkaline Phosphatase 73 Units/L (34-104); Aspartate Amino Transferase 35 Units/L (13-39); BUN/Creatinine Ratio 31 (6-26); Bilirubin,Total 0.5 mg/dL (0.3-1.0); Blood Urea Nitrogen 20 mg/dL (6-20); Calcium 9.2 mg/dL (8.6-10.3); Carbon Dioxide 26 mEq/L (23-29); Chloride 104 mEq/L (98-107); Globulin 2.9 g/dL (2.4-3.5); Glucose 108 mg/dL (70-105); Osmolality,Calculated 289 (280-300); Potassium 3.6 mEq/L (3.5-5.1); Sodium 138 mEq/L (136-145); Total Protein 7.1 g/dL (6.4-8.9); eGFR For African Americans > 60 (> 60); eGFR For Non-African Americans > 60 (> 60)
[2020-08-23] MEDS: lamoTRIgine 25 MG TABLET PO SCH (21:11)
[2020-08-23] MEDS: ARIPiprazole 10 MG TABLET PO SCH (21:11)
[2020-08-24] MEDS: Aspirin Enteric Coated 81 MG Tablet PO SCH (08:44)
[2020-08-24] MEDS: Cyanocobalamin (B-12) 1,000 MCG TABLET PO SCH (08:44)
[2020-08-24] MEDS: Famotidine 20 MG TABLET PO SCH ×2 (08:44→19:49)
[2020-08-24] MEDS: cephALEXin 500 MG CAPSULE PO SCH ×2 (08:44→19:48)
[2020-08-24] MEDS: Acetaminophen 325 MG TABLET PO PRN ×2 (08:46→15:30)
[2020-08-24] MEDS: ARIPiprazole 10 MG TABLET PO SCH (19:48)
[2020-08-24] MEDS: hydrOXYzine pamoate 25 MG CAPSULE PO PRN (19:48)
[2020-08-24] MEDS: lamoTRIgine 25 MG TABLET PO SCH (19:49)
[2020-08-24] MEDS: QUEtiapine Fumarate 25 MG TABLET PO PRN (19:49)
[2020-08-25] MEDS: Famotidine 20 MG TABLET PO SCH ×2 (07:38→21:18)
[2020-08-25] MEDS: cephALEXin 500 MG CAPSULE PO SCH ×2 (07:38→21:18)
[2020-08-25] MEDS: Cyanocobalamin (B-12) 1,000 MCG TABLET PO SCH (07:38)
[2020-08-25] MEDS: Aspirin Enteric Coated 81 MG Tablet PO SCH (07:38)
[2020-08-25] MEDS ORDERED: ARIPiprazole 10 MG TABLET PO SCH (08:43)
[2020-08-25] MEDS: *HR* Metformin 500 MG TABLET PO SCH ×2 (11:07→18:36)
[2020-08-25] MEDS ORDERED: lamoTRIgine 25 MG TABLET PO SCH (21:00)
[2020-08-25] MEDS ORDERED: ARIPiprazole 5 MG TABLET PO SCH (21:00)
[2020-08-26] MEDS: Famotidine 20 MG TABLET PO SCH ×2 (08:11→21:56)
[2020-08-26] MEDS: Cyanocobalamin (B-12) 1,000 MCG TABLET PO SCH (08:11)
[2020-08-26] MEDS: cephALEXin 500 MG CAPSULE PO SCH ×2 (08:11→21:56)
[2020-08-26] MEDS: Aspirin Enteric Coated 81 MG Tablet PO SCH (08:11)
[2020-08-26] MEDS: *HR* Metformin 500 MG TABLET PO SCH ×2 (08:11→17:45)
[2020-08-26] MEDS ORDERED: ARIPiprazole 10 MG TABLET PO SCH (21:00)
[2020-08-26] MEDS: QUEtiapine Fumarate 25 MG TABLET PO PRN (21:56)
[2020-08-27] MEDS: Acetaminophen 325 MG TABLET PO PRN (05:43)
[2020-08-27] MEDS: Famotidine 20 MG TABLET PO SCH (09:03)
[2020-08-27] MEDS: *HR* Metformin 500 MG TABLET PO SCH (09:03)
[2020-08-27] MEDS: cephALEXin 500 MG CAPSULE PO SCH (09:03)
[2020-08-27] MEDS: Aspirin Enteric Coated 81 MG Tablet PO SCH (09:03)
[2020-08-27] MEDS: Cyanocobalamin (B-12) 1,000 MCG TABLET PO SCH (09:04)
[2020-08-27 10:07] VITALS: BP 132/80
== END 2020-08-27 13:00 | disposition home or self-care (01) | DRG 885 ==
LOC: EMEROOARM 04:53 → 1ANU 19:02
PROVIDERS: ADMIT Psychiatry & Neurology Psychiatry; ATTEND Psychiatry & Neurology Psychiatry

== ENCOUNTER 2021-12-27 10:01 | Inpatient (IN) ==
[2021-12-27 10:49] LABS: Basophils # 0.1 K/mcL (0.0-0.2); Basophils % 0.7 %; Eosinophils # 0.2 K/mcL (0.0-0.6); Eosinophils % 2.5 %; Hematocrit 43.9 % (35.3-44.9); Immature Granulocytes % 0.5 % (0-4); Lymphocytes # 3.5 K/mcL (0.6-4.6); Lymphocytes % 45.7 %; Mean Corpuscular HGB Conc 31.9 g/dL (31.6-35.5); Mean Corpuscular Hemoglobin 28.9 pg (28.0-33.3); Mean Corpuscular Volume 90.7 fL (83.0-100.0); Mean Platelet Volume 9.7 fL (9.4-12.4); Monocytes # 0.9 K/mcL (0.0-1.3); Monocytes % 11.8 %; Platelet Count 342 K/mcL (140-400); Red Blood Count 4.84 M/mcL (3.82-4.97); Segmented Neutrophils % 38.8 %; White Blood Count 7.6 K/mcL (4.3-11.1)
[2021-12-27 10:54] LABS: Bacteria,Urine Few per hpf (None-Few); Bilirubin,Urine Negative (Negative); Blood,Urine Trace (Negative); Clarity,Urine Clear (Clear); Color,Urine Yellow (Yellow); Glucose,Urine (UA) Normal (Normal); Ketones,Urine Negative (Negative); Leukocyte Esterase,Urine Moderate (Negative); Mucus,Urine Many per lpf (None-Few); Nitrite,Urine Negative (Negative); Protein,Urine 30 mg/dL (Neg-Trace); RBC,Urine 15-30 per hpf (0-3); Specific Gravity,Urine 1.029 (1.010-1.025); Squamous Epithelial Cell,Urine Few per hpf (None-Few); Urobilinogen,Urine Normal (Normal); WBC,Urine 30-50 per hpf (0-3)
[2021-12-27 10:58] LABS: Amphetamine Screen,Urine Negative ng/mL (Cutoff=1000); Barbiturate Screen,Urine Negative ng/mL (Cutoff=200); Benzodiazepines Screen,Urine Negative ng/mL (Cutoff=200); Cannabinoid Screen,Urine Negative ng/mL (Cutoff = 50); Cocaine Screen,Urine Negative ng/mL (Cutoff= 300); Opiate Screen,Urine Negative ng/mL (Cutoff=300); Phencyclidine Screen,Urine Negative ng/mL (Cutoff=25)
[2021-12-27 11:11] LABS: Acetaminophen < 10 mcg/mL (10-20); BUN/Creatinine Ratio 24 (6-26); Blood Urea Nitrogen 18 mg/dL (8-23); Calcium 9.3 mg/dL (8.6-10.3); Carbon Dioxide 25 mEq/L (23-29); Chloride 106 mEq/L (98-107); Chol/HDL Ratio 3.3 (0-4.9); Cholesterol 143 mg/dL (< 200); Ethanol < 10 mg/dL (Less than 10); Glucose 114 mg/dL (70-105); HDL Cholesterol 43 mg/dL (40-59); LDL Cholesterol,Calculated 80 mg/dL (< 100); Osmolality,Calculated 295 (280-300); Potassium 3.5 mEq/L (3.5-5.1); Salicylate < 2.5 mg/dL (15.0-30.0); Sodium 141 mEq/L (136-145); Triglycerides 98 mg/dL (< 150)
[2021-12-27 11:44] LABS: Influenza A PCR Negative (Negative); Influenza B PCR Negative (Negative); Resp. Syncytial Virus PCR Negative (Negative)
[2021-12-27 11:50] LABS: SARS-CoV-2 by PCR (In House) Negative (Negative)
[2021-12-27 12:00] LABS: Estimated Average Glucose 146 mg/dl; Hemoglobin A1C 6.7 %
[2021-12-27] MEDS ORDERED: MOM Conc 10 ML UD.LIQ PO PRN (12:33)
[2021-12-27] MEDS ORDERED: hydrOXYzine pamoate 25 MG CAPSULE PO PRN (12:33)
[2021-12-27] MEDS ORDERED: *HR* LORazepam 1 MG TABLET PO PRN (12:33)
[2021-12-27] MEDS ORDERED: Haloperidol Lactate 5 MG/ML VIAL IM PRN (12:33)
[2021-12-27] MEDS ORDERED: *HR* LORazepam 2 MG/ML VIAL IM PRN (12:33)
[2021-12-27] MEDS ORDERED: Mag Hydrox/Al Hydrox/Simeth 30 ML UDC PO PRN (12:33)
[2021-12-27] MEDS ORDERED: haloperidoL 5 MG TABLET PO PRN (12:33)
[2021-12-27] MEDS ORDERED: Acetaminophen 325 MG TABLET PO PRN (12:33)
[2021-12-27] MEDS: Nystatin SUSP 5 ML UD.LIQ BC SCH ×3 (15:20→21:14)
[2021-12-27] MEDS: ARIPiprazole 10 MG TABLET PO SCH (21:14)
[2021-12-28] MEDS: Vitamin B Complex/Vit C/Vit E 1 EACH TABLET PO SCH (09:05)
[2021-12-28] MEDS: Nystatin SUSP 5 ML UD.LIQ BC SCH ×4 (09:05→21:08)
[2021-12-28] MEDS: Aspirin Enteric Coated 81 MG Tablet PO SCH (09:06)
[2021-12-28] MEDS: Famotidine 20 MG TABLET PO SCH (09:06)
[2021-12-28] MEDS: Docusate Oral Soln 100 MG/10 ML UDC PO SCH (13:36)
[2021-12-28] MEDS: ARIPiprazole 10 MG TABLET PO SCH (21:06)
[2021-12-28] MEDS: QUEtiapine Fumarate 25 MG TABLET PO PRN (23:42)
[2021-12-29] MEDS: Docusate Oral Soln 100 MG/10 ML UDC PO SCH (08:52)
[2021-12-29] MEDS: Famotidine 20 MG TABLET PO SCH (08:53)
[2021-12-29] MEDS: Nystatin SUSP 5 ML UD.LIQ BC SCH ×4 (08:53→21:17)
[2021-12-29] MEDS: Aspirin Enteric Coated 81 MG Tablet PO SCH (08:53)
[2021-12-29] MEDS: Vitamin B Complex/Vit C/Vit E 1 EACH TABLET PO SCH (08:53)
[2021-12-29] MEDS: Ammonium Lactate 30 APPL/225 GM BOTTLE TP SCH ×2 (11:56→21:17)
[2021-12-29] MEDS: QUEtiapine Fumarate 25 MG TABLET PO PRN (21:16)
[2021-12-29] MEDS: ARIPiprazole 10 MG TABLET PO SCH (21:16)
[2021-12-30] MEDS: Aspirin Enteric Coated 81 MG Tablet PO SCH (08:39)
[2021-12-30] MEDS: Nystatin SUSP 5 ML UD.LIQ BC SCH ×4 (08:39→21:00)
[2021-12-30] MEDS: Docusate Oral Soln 100 MG/10 ML UDC PO SCH (08:39)
[2021-12-30] MEDS: Famotidine 20 MG TABLET PO SCH (08:40)
[2021-12-30] MEDS: Ammonium Lactate 30 APPL/225 GM BOTTLE TP SCH ×2 (08:51→21:00)
[2021-12-30] MEDS: Vitamin B Complex/Vit C/Vit E 1 EACH TABLET PO SCH (10:10)
[2021-12-30 18:07] LABS: Bilirubin,Urine Negative (Negative); Blood,Urine Negative (Negative); Clarity,Urine Clear (Clear); Color,Urine Yellow (Yellow); Glucose,Urine (UA) Normal (Normal); Ketones,Urine Negative (Negative); Leukocyte Esterase,Urine Small (Negative); Mucus,Urine Few per lpf (None-Few); Nitrite,Urine Negative (Negative); PH,Urine 6.5 pH Units (5.0-8.0); Protein,Urine Trace mg/dL (Neg-Trace); Specific Gravity,Urine 1.026 (1.010-1.025); Squamous Epithelial Cell,Urine Moderate per hpf (None-Few); Urobilinogen,Urine Normal (Normal)
[2021-12-30] MEDS: ARIPiprazole 10 MG TABLET PO SCH (21:00)
[2021-12-31] MEDS: Aspirin Enteric Coated 81 MG Tablet PO SCH (08:59)
[2021-12-31] MEDS: Vitamin B Complex/Vit C/Vit E 1 EACH TABLET PO SCH (08:59)
[2021-12-31] MEDS: Nystatin SUSP 5 ML UD.LIQ BC SCH ×2 (08:59→12:36)
[2021-12-31] MEDS: Docusate Oral Soln 100 MG/10 ML UDC PO SCH (08:59)
[2021-12-31] MEDS: Famotidine 20 MG TABLET PO SCH (08:59)
[2021-12-31] MEDS ORDERED: ARIPiprazole 400 MG SUSER.SYR IM SCH (09:00)
[2021-12-31] MEDS: Ammonium Lactate 30 APPL/225 GM BOTTLE TP SCH (09:01)
[2021-12-31 10:09] VITALS: BP 147/88; PULSE 86; TEMP 97.4; O2SAT 100
== END 2021-12-31 15:10 | disposition home or self-care (01) | DRG 885 ==
LOC: EMEROOARM 10:01 → 1ANU 13:12
PROVIDERS: ADMIT Psychiatry & Neurology Psychiatry; ATTEND Psychiatry & Neurology Psychiatry